=== PATIENT | male | born 1995 | race Caucasian/White ===

== ENCOUNTER 2020-03-31 17:00 | Emergency (ER) | payer BC ==
[~2020-03-31] VITALS: Ht 180.3 cm; Wt 81.7 kg
[2020-03-31 17:10] VITALS: BP 124/79
== END 2020-03-31 17:47 | disposition home or self-care (01) ==
LOC: M.ERS 17:00
DX: S61.411A Laceration without foreign body of right hand, initial encounter (principal); W26.8XXA Contact with other sharp object(s), not elsewhere classified, initial encounter; Y93.89 Activity, other specified; Y92.89 Other specified places as the place of occurrence of the external cause; Y99.8 Other external cause status